=== PATIENT | female | born 1960 | race Caucasian/White ===

== ENCOUNTER 2024-01-14 18:28 | Emergency (ER) | payer BC, SELFPAY ==
[2024-01-14 18:31] VITALS: BP 155/66
[2024-01-14 19:17] VITALS: BMI 21.3
--- NOTE | 2024-01-14 19:48 | ED.MUSCINJ ---
HPI-Injury
General
Chief Complaint: Musculo-Skeletal Complaint
Source: patient
Exam Limitations: none
Nursing documentation reviewed up to this point in time: agreed with
History of Present Illness-Injury
Initial Injury comments:
63-year-old female presents emergency department complaining of left ankle pain. She twisted her ankle after getting up. She states her foot fell asleep, and then she twisted her ankle and fell.
Past History
Past History
ED Past Medical History: None
ED Past Surgical History: None
Social History
Tobacco: Non-smoker
Alcohol: None
Drug: None
Living: with family
Review of Systems
Review of Systems
Allergies reviewed?: Yes
All Other Systems: Not applicable
Constitutional: Reports no symptoms
EENT: Reports no symptoms
Respiratory: Reports no symptoms
Cardiac: Reports no symptoms
ABD/GI: Reports no symptoms
: Reports no symptoms
Musculoskeletal: Reports joint pain
Skin: Reports no symptoms
Neurological: Reports no symptoms
Endocrine: Reports no symptoms
Hematologic/Lymphatic: Reports no symptoms
Psychiatric: Reports no symptoms
Phy Exam
Physical Exam
Physical Exam:
Physical Exam
General: no apparent distress, not acutely ill
Neck: supple. no meningeal signs. normal posterior pharynx
HEENT: Pupils equal round reactive to light, EOMI
Lungs: no acute respiratory distress.
Abdomen: Nondistended
Neuro: alert and oriented. no focal neurological deficits cranial nerves II through XII intact
Skin: no rash
Psychiatric: well kept. interactive and cooperative
Extremities: no edema. no calf tenderness. negative homans. good distal pulses, left ankle swelling, ecchymosis and tenderness to palpation at left distal lateral malleolus
Injury Course
Orders/Labs/Results
Orders:
Orders
01/14/24 18:33
Ankle, left 3 view CR [CR Ankle - Left Min 3 Views ] Urgent
Comment:
Reason For Exam: injury
01/14/24 19:48
Splints/Slings/Crut- Treatment ONCE
Location: Left
Type of Splint: Short Leg
Comment: posterior L type splint
01/14/24 20:29
Crutches-Treatment ONCE
01/14/24 20:48
Acetaminophen [Tylenol] 650 mg .ROUTE .STK-MED ONE
Acetaminophen [Tylenol] 650 mg PO NOW STA
Procedures
Splint Check
Splint checked by provider?: Yes
Circulation/Movement/Sensation post splint application: brisk cap refill, full sensation, pulses intact and decreased ROM
MDM/Problems Addressed
Differential Diagnosis Includes:
Left ankle fracture/dislocation
MDM/Problems Addressed:
63-year-old female with left distal fibula fracture. Splint applied. Follow-up with orthopedics. Neurovascular intact, closed.
*Radiology
Radiology exam reviewed: preliminary read by ED provider (Left ankle x-ray distal fibula fracture) and radiology read reviewed (Left ankle x-ray shows lateral malleolus fracture, lateral calcaneal cortical avulsion fracture, proximal fifth
metatarsal fracture)
*Pulse Oximetry
Patient hypoxic: no
*Critical Care Note
Total Time (30-74mins, 75-104mins- exclusive of procedures): Not Applicable
Patient Management
Social determinants of health affecting care: Living situation
Escalation/DeEscalation of care consider admission/obs:
Admit not indicated
ED Attending Note
-
Portions of this chart may have been created with voice recognition software.� Occasional wrong word or��sound alike� substitutions may have occurred due to the inherent limitations of voice recognition software.
Discharge Plan
Departure
Patient Disposition: Home (Routine Discharge)
Date of Disposition: 01/14/24
Time of Disposition: 21:10
Patient with high blood pressure during this ER visit?: Yes
Condition: Good
Discharge Problem:
Closed fracture of distal end of left fibula, Avulsion fracture of calcaneus, Fracture of fifth metatarsal bone
Instructions: How to Use Crutches, Ankle Fracture (DC), BLOOD PRESSURE
Referrals:
Julia Morin DO [Active] - Call in 1-3 days for appt
Remedios Gill DO [Family Provider] -
Interventions
Interventions:
*Risk Screen - Suicide Last Done: 01/14/24 19:16
*General Assessment Last Done: 01/14/24 19:16
*Neglect/Abuse Screening Last Done: 01/14/24 19:16
*ED COVID-19 Vaccine History Last Done: 01/14/24 19:16
ED-Musculoskeletal Assessment Last Done: 01/14/24 19:17
Discharge Date and Time
Print Language: [place]
[2024-01-14] MEDS: TYLENOL 650 MG PO (20:49)
[2024-01-14 21:36] VITALS: BP 130/66
== END 2024-01-14 21:49 | disposition home or self-care (01) ==
LOC: EMR 18:28
PROVIDERS: EMERGENCY PHYSICIAN Emergency Medicine; FAMILY PHYSICIAN Family Medicine
DX: S82.65XA Nondisplaced fracture of lateral malleolus of left fibula, initial encounter for closed fracture (principal); S92.352A Displaced fracture of fifth metatarsal bone, left foot, initial encounter for closed fracture; S92.002A Unspecified fracture of left calcaneus, initial encounter for closed fracture; X50.1XXA Overexertion from prolonged static or awkward postures, initial encounter
CPT/HCPCS: 99283; 29515; 73610